=== PATIENT | female | born 1965 | race Hispanic/Latino ===

== ENCOUNTER 2022-01-09 18:07 | Emergency (ER) | payer BC, OTHER ==
[2022-01-09 19:15] VITALS: BP 162/100
[2022-01-09] MEDS ORDERED: TIZA4CAP8 PO (20:36)
== END 2022-01-09 20:59 | disposition home or self-care (01) ==
LOC: EDH 18:07
DX: S16.1XXA Strain of muscle, fascia and tendon at neck level, initial encounter (principal); S09.90XA Unspecified injury of head, initial encounter; V49.49XA Driver injured in collision with other motor vehicles in traffic accident, initial encounter; Y93.89 Activity, other specified; Y92.89 Other specified places as the place of occurrence of the external cause; Y99.8 Other external cause status
CPT/HCPCS: 70450; 72125